=== PATIENT | male | born 1995 | race Caucasian/White ===

== ENCOUNTER 2016-04-27 12:54 | Emergency (ER) | payer MEDICAID ==
[2016-04-27 13:06] VITALS: PULSE 118; RESP 18; TEMP 98.2; O2SAT 96
[2016-04-27 13:07] VITALS: BP 173/98
--- NOTE | 2016-04-27 13:53 | EDPHY ---
H & P Stated Complaint: snowboarding caught edge fell onto L shoulder clavicle pain no loc no other Time Seen by Provider: 04/27/16 13:53 HPI/ROS: CHIEF COMPLAINT: Left shoulder pain HISTORY OF PRESENT ILLNESS: Patient presents the ED with pain to his left shoulder following a fall skiing. The patient fell onto an outstretched hand. He reports moderate to severe pain in his left AC joint. He denies associated numbness or weakness. The patient denies additional traumatic injury and specifically denies neck pain, headache, chest pain, back pain or difficulty breathing. Patient denies prior history of orthopedic surgery. The patient denies additional traumatic complaints. REVIEW OF SYSTEMS: A comprehensive 10 point review of systems is otherwise negative aside from elements mentioned in the history of present illness. Source: Patient Exam Limitations: No limitations - Medical/Surgical History Hx Asthma: No Hx Chronic Respiratory Disease: No Hx Diabetes: No Hx Cardiac Disease: No Hx Renal Disease: No Hx Cirrhosis: No Hx Alcoholism: No Hx HIV/AIDS: No Hx Splenectomy or Spleen Trauma: No Other PMH: htn - Family History Significant Family History: No pertinent family hx - Social History Smoking Status: Current some day smoker - Physical Exam Exam: General Appearance: Alert, no distress Head: Atraumatic Eyes: Pupils equal, round, reactive ENT, Mouth: No hemotympanum, no oral trauma Neck: Nontender, trachea midline Respiratory: No chest wall tender, subcutaneous air, lungs clear bilaterally Cardiovascular: Regular rate and rhythm Abdomen: Abdomen is soft and nontender, pelvis stable Skin: No lacerations, No abrasion Back: No midline T/L/S pain Extremities: Tenderness to palpation deformity noted over left AC joint Neurological: A&Ox3, normal motor function, normal sensory exam Constitutional: Initial Vital Signs Temperature (C) 36.8 C 04/27/16 13:02 Heart Rate 118 H 04/27/16 13:02 Respiratory Rate 18 04/27/16 13:02 Blood Pressure 173/98 H 04/27/16 13:02 O2 Sat (%) 96 04/27/16 13:02 O2 Delivery Mode Room Air Allergies/Adverse Reactions: No Known Allergies Allergy (Unverified 04/27/16 13:01) Home Medications: Medication Instructions Recorded Lisinopril 04/27/16 VYVANSE 04/27/16 Medical Decision Making - Diagnostics Imaging: Left shoulder x-ray: Images reviewed by myself, grade 2 AC separation Left clavicle x-ray: Images reviewed by myself, grade 2 AC separation. ED Course/Re-evaluation: The patient presents to the emergency department with a grade to left AC separation. There is no evidence of a fracture dislocation. The patient is placed in a sling. He is discharged home with customary aftercare instructions and precautions. The patient is noted to be mildly hypertensive in the ED. The patient does take lisinopril on a daily basis for hypertension and has not yet taken the medication today. The patient will follow up with his regular physician for a blood pressure recheck next week. The patient is noted to be neurologically intact. He has no additional complaints. The patient was placed in a sling in the emergency department. Differential Diagnosis: Differential diagnosis considered includes fracture, sprain, dislocation Departure - Departure Disposition: Home, Routine, Self-Care Clinical Impression: Shoulder separation Qualifiers: Encounter type: initial encounter Laterality: left Qualified Code(s): S43.005A - Unspecified dislocation of left shoulder joint, initial encounter Condition: Good Instructions: Acromioclavicular Separation (ED) Additional Instructions: 1. Sling as needed for comfort. 2. Take Ibuprofen or Motrin 600 mg by mouth three times a day. 3. Please return to the ED for any numbness or weakness. 4. Please follow up with the orthopedic surgeon you have been referred to for any persistent pain, decreased range of motion or sensation of instability past 7-10 days. Referrals: Alberto Hidalgo MD [Medical Doctor] - As per Instructions
== END 2016-04-27 14:16 | disposition home or self-care (01) ==
DX: S43.102A Unspecified dislocation of left acromioclavicular joint, initial encounter (principal); I10 Essential (primary) hypertension; F17.200 Nicotine dependence, unspecified, uncomplicated; V00.311A Fall from snowboard, initial encounter; Y99.8 Other external cause status; Y93.23 Activity, snow (alpine) (downhill) skiing, snowboarding, sledding, tobogganing and snow tubing